=== PATIENT | female | born 1975 | race Caucasian/White ===

== ENCOUNTER 2018-02-26 13:45 | Emergency (ER) | payer OTHER ==
[~2018-02-26] VITALS: Ht 175.3 cm; Wt 56.7 kg
[2018-02-26 13:49] VITALS: TEMP 36.6; Ht 175.3 cm; Wt 56.7 kg
[2018-02-26] MEDS ORDERED: SODIUM CHLORIDE 0.9% 1000ML 1,000 ML IV ONE (14:45)
[2018-02-26] MEDS ORDERED: MIRT30TA2 PO (14:45)
[2018-02-26] MEDS ORDERED: ONDANSETRON INJ 2 MG/ML 2 ML VIAL IV PRN (14:45)
[2018-02-26] MEDS ORDERED: CLON0.1T12 PO (14:47)
[2018-02-26] MEDS ORDERED: CLON1TAB3 PO (14:47)
[2018-02-26] MEDS ORDERED: IBUP-1050 PO (14:47)
--- NOTE | 2018-02-26 14:52 | EMERGENCY ROOM VISIT NOTE ---
History First contact with patient: 14:34 Chief Complaint: URINARY SYMPTOMS Stated Complaint: ACUTE PYELONEPHRITIS,SLIGHT SPLEENOMEGALY.... Nursing Triage Summary: Pt states seen at [facility] yesterday, dx with 5mm kidney stone in left kidney, kidney infection, spleen is enlarged. "I started with a UTI on Fri and Sun afternoon I started getting sharp pain in my left side. I've had kidney stones before. [facility] was going to send me here yesterday to be admitted, but they decided to send me home." Intermittent hematuria. History of Present Illness The patient is a 42 year old female who presents to the Emergency Room with complaints of severe left-sided flank pain and abdominal pain for the last several days. The patient was seen at [facility] yesterday. She was diagnosed with a 5 mm kidney stone in addition to a urinary tract infection. She was sent home on antibiotics. She was also given 2 Percocet. The pain has gotten increasingly worse. She has also been taking ibuprofen with minimal relief. She had several episodes of nausea and vomiting yesterday. She also reports a fever as high as 103F when she woke up today. Review of Systems 10 system review performed and negative unless noted in HPI or below Past Medical/Surgical History Raynauds Kidney stones Factor V Leiden Social History Smoking Status: Current Every Day Smoker Current/Historical Medications Scheduled Clonidine Hcl (Catapres), 1 TAB PO BID Ibuprofen (Advil), 600 MG PO UD Mirtazapine Soltab (Remeron Soltab), 30 MG PO HS Phenazopyridine HCl (Pyridium), 200 MG PO TID Scheduled PRN Clonazepam (Klonopin), 1 MG PO DAILY PRN for Anxiety Hydrocodone/Acetaminophen 5MG/325MG ([place] 5MG/325MG), 1-2 TABLET PO Q4H PRN for Pain Physical Exam Vital Signs Date Time Temp Pulse Resp B/P (MAP) Pulse Ox O2 Delivery O2 Flow Rate FiO2 02/26/18 18:39 65 17 136/74 100 02/26/18 16:40 71 26 127/63 97 Room Air 02/26/18 15:20 57 16 127/63 100 Room Air 02/26/18 13:49 36.6 89 18 136/81 98 Room Air Physical Exam VITALS: Vitals are noted on the nurse's note and reviewed by myself. Vital signs stable. GENERAL: 42-year-old female, in moderate discomfort. SKIN: The skin was without rashes, erythema, edema, or bruising. HEAD: Normocephalic atraumatic. MOUTH: Mucous membranes fairly moist NECK: Supple without nuchal rigidity. No lymphadenopathy. Cervical spine is nontender. No JVD. HEART: Regular rate and rhythm without murmurs gallops or rubs. LUNGS: Clear to auscultation bilaterally without wheezes, rales or rhonchi. No accessory muscle use. ABDOMEN: Positive bowel sounds x 4.Soft, mild tenderness to palpation in the left lower quadrant without organomegaly. No guarding or rebound tenderness. No CVA tenderness bilaterally. MUSCULOSKELETAL: No muscle atrophy, erythema, or edema noted.Strength 5/5 throughout. NEURO: Patient was alert and oriented to person place and time. Normal sensation to touch. No focal neurological deficits. Medical Decision & Procedures ER Provider Diagnostic Interpretation: KUB x-ray IMPRESSION: No renal or ureteral stones. Electronically signed by: Hemal Narvaez M.D. 02/26/2018 5:05 PM Dictated Date/Time: 02/26/2018 5:03 PM Retroperitoneal ultrasound IMPRESSION: 1. Equivocal tiny left renal calculi 2. Mild fullness of the left renal collecting system. High-grade obstruction is not felt to be present as bilateral ureteral jets were demonstrated Electronically signed by: Chaka Witt M.D. 02/26/2018 5:34 PM Dictated Date/Time: 02/26/2018 5:33 PM Laboratory Results 02/26/18 15:10 Red Blood Count 4.77, Mean Corpuscular Volume 84.3, Mean Corpuscular Hemoglobin 27.0, Mean Corpuscular Hemoglobin Concent 32.1, Mean Platelet Volume 10.4, Neutrophils (%) (Auto) 68.4, Lymphocytes (%) (Auto) 24.0, Monocytes (%) (Auto) 6.6, Eosinophils (%) (Auto) 0.6, Basophils (%) (Auto) 0.1, Neutrophils # (Auto) 4.64, Lymphocytes # (Auto) 1.63, Monocytes # (Auto) 0.45, Eosinophils # (Auto) 0.04, Basophils # (Auto) 0.01 02/26/18 15:10 Test 02/26/18 14:55 02/26/18 15:10 Urine Color DK YELLOW Urine Appearance CLOUDY (CLEAR) Urine pH 5.0 (4.5-7.5) Urine Specific [place] 1.023 (1.000-1.030) Urine Protein 1+ (NEG) Urine Glucose (UA) NEG (NEG) Urine Ketones TRACE (NEG) Urine Occult Blood 3+ (NEG) Urine Nitrite POS (NEG) Urine Bilirubin NEG (NEG) Urine Urobilinogen NEG (NEG) Urine Leukocyte Esterase TRACE (NEG) Urine WBC (Auto) 10-30 /hpf (0-5) Urine RBC (Auto) 10-30 /hpf (0-4) Urine Hyaline Casts (Auto) /lpf (0-5) Urine Epithelial Cells (Auto) >30 /lpf (0-5) Urine Bacteria (Auto) NEG (NEG) Urine Pathogenic Casts /lpf (0) White Blood Count 6.79 K/uL (4.8-10.8) Red Blood Count 4.77 M/uL (4.2-5.4) Hemoglobin 12.9 g/dL (12.0-16.0) Hematocrit 40.2 % (37-47) Mean Corpuscular Volume 84.3 fL (80-100) Mean Corpuscular Hemoglobin 27.0 pg (25-34) Mean Corpuscular Hemoglobin Concent 32.1 g/dl (32-36) Platelet Count 176 K/uL (130-400) Mean Platelet Volume 10.4 fL (7.4-10.4) Neutrophils (%) (Auto) 68.4 % Lymphocytes (%) (Auto) 24.0 % Monocytes (%) (Auto) 6.6 % Eosinophils (%) (Auto) 0.6 % Basophils (%) (Auto) 0.1 % Neutrophils # (Auto) 4.64 K/uL (1.4-6.5) Lymphocytes # (Auto) 1.63 K/uL (1.2-3.4) Monocytes # (Auto) 0.45 K/uL (0.11-0.59) Eosinophils # (Auto) 0.04 K/uL (0-0.5) Basophils # (Auto) 0.01 K/uL (0-0.2) RDW Standard Deviation 40.8 fL (36.4-46.3) RDW Coefficient of Variation 13.3 % (11.5-14.5) Immature Granulocyte % (Auto) 0.3 % Immature Granulocyte # (Auto) 0.02 K/uL (0.00-0.02) Anion Gap 3.0 mmol/L (3-11) Est Creatinine Clear Calc Drug Dose 69.1 ml/min Estimated GFR () 86.1 Estimated GFR (Non- 74.3 BUN/Creatinine Ratio 12.7 (10-20) Calcium Level 8.5 mg/dl (8.5-10.1) Total Bilirubin 0.3 mg/dl (0.2-1) Aspartate Amino Transf (AST/SGOT) 13 U/L (15-37) Alanine Aminotransferase (ALT/SGPT) 13 U/L (12-78) Alkaline Phosphatase 123 U/L (45-117) Total Protein 7.0 gm/dl (6.4-8.2) Albumin 3.1 gm/dl (3.4-5.0) Globulin 3.9 gm/dl (2.5-4.0) Albumin/Globulin Ratio 0.8 (0.9-2) Human Chorionic Gonadotropin, Qual NEG (NEG) Medications Administered Medications (Trade) Dose Ordered Sig/Treva Route Start Time Stop Time Status Last Admin Dose Admin Morphine Sulfate (MoRPHine SULFATE INJ) 4 mg Q1H PRN IV 02/26/18 14:45 02/26/18 18:54 DC 02/26/18 16:38 4 MG Ondansetron HCl (Zofran Inj) 4 mg Q2H PRN IV 02/26/18 14:45 02/26/18 18:54 DC 02/26/18 15:17 4 MG Sodium Chloride 1,000 ml @ 999 mls/hr Q1H1M ONCE IV 02/26/18 14:45 02/26/18 15:45 DC 02/26/18 15:18 999 MLS/HR Levofloxacin (Levaquin Tab) 500 mg NOW ONCE PO 02/26/18 18:30 02/26/18 18:31 DC 02/26/18 18:37 500 MG ED Course Patient was seen and examined Vital signs including blood pressure were reviewed medications list was verified with patient Labs were obtained, and a saline lock was established The patient was medicated with morphine 4 mg IV and Zofran 4 mg IV. She was hydrated with 1 L of normal saline Upon reevaluation, the patient was still complaining of pain. She did require an additional dose of morphine. Imaging was performed and reviewed Upon reassessment, the patient was resting comfortably. She was given 1 dose of Levaquin 500 mg po These findings were discussed with the patient. She voiced understanding, was comfortable being discharged home I reviewed discharge instructions the patient. They voiced understanding and had no further questions. Medical Decision Differential diagnosis: UTI, pyelonephritis, ureteral stone, sepsis, muscular skeletal pain this patient is a 42-year-old female presents to the emergency department complaining of left flank pain And urinary symptoms. On exam, she was uncomfortable. She did not have any significant CVA tenderness. Her labs reveal no leukocytosis. Renal function is intact. I reviewed the patient's workup from at [facility] yesterday. She reportedly has a 4 mm kidney stone in the kidney. There are no signs of ureteral calculi. I ordered an ultrasound, which is consistent with mild fullness. No significant stones were noted. KUB also did not picking supervisor any stones. It is possible that she has pyelonephritis. She does not appear septic. I believe she is stable to be discharged home. The patient was provided a prescription for Levaquin for 10 days from [facility], which I feel is appropriate. She was given 1 dose of Levaquin prior to discharge. I also gave the patient a short course of narcotic medication and Pyridium. She was encouraged to follow-up with her primary care physician in addition to her urologist. This chart was completed in part utilizing [employer] Speech Voice Recognition software. Attempts were made to minimize the grammatical errors, random word insertions, pronoun errors and incomplete sentences. Any formal questions or concerns about the content, text or information contained within the body of this dictation should be directly addressed to the provider for clarification. Medication Reconcilliation Current Medication List: was personally reviewed by me Blood Pressure Screening Patient's blood pressure: Elevated blood pressure Blood pressure disposition: Did not require urgent referral Impression Primary Impression: Pyelonephritis Departure Information Dispostion Home / Self-Care Condition FAIR Prescriptions Hydrocodone/Acetaminophen 5MG/325MG ([place] 5MG/325MG) Tab 1-2 TABLET PO Q4H Y for Pain, #15 TAB For Initial Treatment Prov: Brooke Ansari PA-C 02/26/18 Phenazopyridine HCl (Pyridium) 200 Mg Tab 200 MG PO TID for Pain, #15 TAB Prov: Brooke Ansari PA-C 02/26/18 Referrals Nancy Caceres M.D. (PCP) Reed Nelson M.D. Patient Instructions My [facility] Additional Instructions You were seen in the emergency department for flank pain and urinary symptoms. It does appear that you have a UTI. Please take the ENTIRE course of antibiotics Please take Pyridium 1 tab every 8 hours for urinary discomfort Ibuprofen 600 mg every 6 hours [place] 1-2 tabs every 4 hours for severe pain. Do not drink alcohol or drive while taking this medication. This may be taken with ibuprofen, but avoid Tylenol. It is important to stay well-hydrated. Increase fluids over the next several days. Please follow-up with your primary care physician within the next 1-2 days for recheck. Please also follow-up with the urologist. A number has been provided. Do not hesitate to return to emergency department with any new, worsening or concerning symptoms; especially, fever, worsening pain or persistent vomiting
[2018-02-26] MEDS: MoRPHine SULFATE 4 MG/ML 1 ML CARP\\VIAL IV PRN ×2 (15:18→16:38)
[2018-02-26 15:31] LABS: BASO % 0.1 %; BASO ABS # 0.01 K/uL (0-0.2); EOS % 0.6 %; EOS ABS # 0.04 K/uL (0-0.5); HEMATOCRIT 40.2 % (37-47); HEMOGLOBIN 12.9 g/dL (12.0-16.0); IG# 0.02 K/uL (0.00-0.02); LYMPH ABS # 1.63 K/uL (1.2-3.4); MEAN CELL VOLUME 84.3 fL (80-100); MEAN CORPUSCULAR HGB CONC 32.1 g/dl (32-36); MEAN PLATELET VOLUME 10.4 fL (7.4-10.4); MONO % 6.6 %; MONO ABS # 0.45 K/uL (0.11-0.59); NEUT % 68.4 %; NEUT ABS # 4.64 K/uL (1.4-6.5); PLATELET COUNT 176 K/uL (130-400); RED CELL DISTRIBUTION WIDTH CV 13.3 % (11.5-14.5); RED CELL DISTRIBUTION WIDTH SD 40.8 fL (36.4-46.3); WHITE BLOOD COUNT 6.79 K/uL (4.8-10.8)
[2018-02-26 15:52] LABS: ALBUMIN 3.1 gm/dl (3.4-5.0); CALCIUM 8.5 mg/dl (8.5-10.1); CREATININE 0.94 mg/dl (0.60-1.20); POTASSIUM 3.8 mmol/L (3.5-5.1)
--- NOTE | 2018-02-26 17:06 | DIAGNOSTIC IMAGING REPORT ---
KUB HISTORY: Left flank pain ? left ureteral stone COMPARISON: None. FINDINGS: The bowel gas pattern is unremarkable. There are no dilated loops of small bowel to suggest an obstruction. Fusion hardware at L5-S1. No renal or ureteral calculi identified. The lung bases are clear. No pneumoperitoneum or pneumatosis. IMPRESSION: No renal or ureteral stones. Electronically signed by: Hemal Narvaez M.D. 02/26/2018 5:05 PM Dictated Date/Time: 02/26/2018 5:03 PM
--- NOTE | 2018-02-26 17:36 | DIAGNOSTIC IMAGING REPORT ---
RENAL ULTRASOUND CLINICAL HISTORY: Left flank pain. Urinary tract infection. COMPARISON STUDY: No previous studies for comparison. FINDINGS: The right kidney measures 10.4 cm in length. The left kidney measures 10.8 cm in length. No renal masses are visualized. There is mild fullness of the right renal collecting system. There are 2 echogenic foci within the left kidney possibly representing calculi. No bladder lesions are visualized. Bilateral ureteral jets were delineated. IMPRESSION: 1. Equivocal tiny left renal calculi 2. Mild fullness of the left renal collecting system. High-grade obstruction is not felt to be present as bilateral ureteral jets were demonstrated Electronically signed by: Chaka Witt M.D. 02/26/2018 5:34 PM Dictated Date/Time: 02/26/2018 5:33 PM
[2018-02-26] MEDS ORDERED: HYDR-5688 PO (18:15)
[2018-02-26] MEDS ORDERED: PHEN-876 PO (18:15)
[2018-02-26] MEDS ORDERED: LEVOFLOXACIN 250 MG TAB PO ONE (18:30)
[2018-02-26 18:39] VITALS: BP 136/74; PULSE 65; O2SAT 100
== END 2018-02-26 18:40 | disposition home or self-care (01) ==
LOC: C.EDB 13:45 → C.EDC 18:40
DX: N12 Tubulo-interstitial nephritis, not specified as acute or chronic (principal); R03.0 Elevated blood-pressure reading, without diagnosis of hypertension; N20.0 Calculus of kidney; N39.0 Urinary tract infection, site not specified; F17.200 Nicotine dependence, unspecified, uncomplicated; Z79.899 Other long term (current) drug therapy